=== PATIENT | female | born 1980 | race Caucasian/White ===

== ENCOUNTER 2023-06-03 08:20 | Emergency (ER) | payer BC ==
[~2023-06-03] VITALS: Ht 162.6 cm; Wt 113.4 kg
[2023-06-03 08:40] VITALS: O2SAT 100
[2023-06-03 10:42] VITALS: BP 180/88; PULSE 75; RESP 17; TEMP 98.4
== END 2023-06-03 11:02 | disposition home or self-care (01) ==
LOC: ER 08:20
DX: S61.215A Laceration without foreign body of left ring finger without damage to nail, initial encounter (principal); I10 Essential (primary) hypertension; Z98.890 Other specified postprocedural states; Z90.49 Acquired absence of other specified parts of digestive tract; X58.XXXA Exposure to other specified factors, initial encounter; Y93.89 Activity, other specified; Y92.89 Other specified places as the place of occurrence of the external cause; Y99.8 Other external cause status
CPT/HCPCS: 12002; 99282; Z7610

== ENCOUNTER 2024-03-22 04:56 | Emergency (ER) | payer BC, MEDICAID ==
[~2024-03-22] VITALS: Ht 162.6 cm; Wt 137.0 kg
[2024-03-22 05:26] VITALS: BP 172/96; TEMP 98.4; O2SAT 100
[2024-03-22 06:57] LABS: CARBON DIOXIDE 27 mEq/L (21-32); CHLORIDE 106 mEq/L (98-107); POTASSIUM 4.2 mEq/L (3.5-5.1); SODIUM 139 mEq/L (136-145)
[2024-03-22 06:58] LABS: CALCIUM 9.1 mg/dL (8.7-10.4); D-DIMER 0.54 mg/L FEU (<0.50); INR 0.9; PROTHROMBIN TIME 10.5 sec (9.6-11.0)
[2024-03-22 07:02] LABS: CREATININE 0.9 mg/dL (0.6-1.0); GLUCOSE 109 mg/dL (70-105); TROPONIN I HIGH SENSITIVITY 12 ng/L (3.0-34)
[2024-03-22 07:03] LABS: HCG SCREEN NEGATIVE; UREA NITROGEN BLOOD 17 mg/dL (9-23)
[2024-03-22 07:04] LABS: ALANINE AMINOTRANSFERASE 13 IU/L (10-49); ALBUMIN 4.1 g/dL (3.2-4.8); ASPARTATE AMINOTRANSFERASE 17 IU/L (<34)
[2024-03-22 07:05] LABS: BILIRUBIN TOTAL 0.3 mg/dL (0.1-1.0); PROTEIN TOTAL 8.3 g/dL (6.0-8.3)
[2024-03-22 07:06] LABS: THYROID STIMULATING HORMONE 2.91 uIU/mL (0.55-4.78)
[2024-03-22 07:33] LABS: BILIRUBIN DIRECT < 0.1 mg/dL (<=3.0)
[2024-03-22 07:58] LABS: BASOPHILS % 0.9 % (0.0-2.0); EOSINOPHILS % 2.1 % (0.0-5.0); HEMATOCRIT. 33.6 % (36.0-48.0); HEMOGLOBIN. 11.1 g/dL (12.0-16.0); LYMPHOCYTES % 22.4 % (20.0-50.0); MEAN CORPUSCULAR HEMOGLOBIN 28.8 pg (28.0-32.0); MEAN CORPUSCULAR HGB CONC 32.9 g/dL (31.0-37.0); MEAN CORPUSCULAR VOLUME 87.7 fL (81.0-99.0); MEAN PLATELET VOLUME 8.6 fl (7.4-10.4); MONOCYTES % 7.4 % (2.0-8.0); NEUTROPHILS % 67.2 % (40.0-76.0); PLATELET 313 x1000/uL (130-400); RED BLOOD CELL COUNT 3.84 mill/uL (4.2-5.4); RED CELL DISTRIBUTION WIDTH 17.7 % (11.6-14.6)
[2024-03-22 08:24] VITALS: PULSE 69; RESP 16; O2SAT 100
[2024-03-22] MEDS: IOHEXOL-350 100 ML BOTTLE ONE (10:14)
[2024-03-22 11:24] LABS: TROPONIN I HIGH SENSITIVITY 13 ng/L (3.0-34)
== END 2024-03-22 14:36 | disposition home or self-care (01) ==
LOC: ER 04:56
DX: R00.2 Palpitations (principal); I10 Essential (primary) hypertension
CPT/HCPCS: 80076; 80048; 84703; 83690; 84443; 85025; 85379; 85610; 84484; 36415; 71045; 71275; 93005; 99285; Q9967; Z7610